=== PATIENT | female | born 1980 | race American Indian/Alaskan Native ===

== ENCOUNTER 2018-09-07 22:13 | Emergency (ER) | payer SELFPAY ==
[2018-09-08] MEDS ORDERED: ULTRAM PO ONE (01:44)
--- NOTE | 2018-09-08 01:45 | Emergency Department Report ---
ED Lower Extremity HPI - General Chief Complaint: Extremity Injury, Lower Stated Complaint: DIZZY/PAIN RT LEG Time Seen by Provider: 09/08/18 01:30 Source: patient Mode of arrival: Ambulatory Limitations: No Limitations - History of Present Illness Initial Comments: pt is a 37 y/o aaf who presented given lower extremity pain past 3 days patient denies falling or trauma pain radiates from low back to the right lower lid is 5 /10 aching and burning and numbness no tingling or paralysis no loss of bowel or bladder function patient remains M to a steady gait per patient patient took Tylenol No. 3 at home with Tylenol No. 3 made her feel dizzy MD Complaint: hip injury Onset/Timin Injury: Knee: Right Type of Injury: blunt, unknown Place: home Severity: moderate Severity scale (0 -10): 5 Worsens With: weight bearing, movement, palpation Associated Symptoms: snap/pop sensation Treatments Prior to Arrival: cold therapy - Related Data Previous Rx's Medication Instructions Recorded Last Taken Type Cyclobenzaprine [Flexeril] 10 mg PO TID PRN #20 tablet 09/08/18 Unknown Rx Menthol/Camphor [[place] 1 applic TP TID #1 tube 09/08/18 Unknown Rx Ointment] Naproxen 500 mg PO BID #30 tablet 09/08/18 Unknown Rx Allergies Allergy/AdvReac Type Severity Reaction Status Date / Time No Known Allergies Allergy Unverified 09/07/18 22:26 ED Review of Systems ROS: Stated complaint: DIZZY/PAIN RT LEG Other details as noted in HPI Constitutional: denies: chills, fever Eyes: denies: eye pain, eye discharge, vision change ENT: denies: ear pain, throat pain Respiratory: denies: cough, shortness of breath, wheezing Cardiovascular: denies: chest pain, palpitations Endocrine: no symptoms reported Gastrointestinal: denies: abdominal pain, nausea, diarrhea Genitourinary: denies: urgency, dysuria, discharge Musculoskeletal: denies: back pain, joint swelling, arthralgia Skin: denies: rash, lesions Neurological: denies: headache, weakness, paresthesias Psychiatric: denies: anxiety, depression Hematological/Lymphatic: denies: easy bleeding, easy bruising, swollen glands ED Past Medical Hx - Past Medical History Previous Medical History?: Yes Hx Asthma: Yes - Surgical History Past Surgical History?: No - Social History Smoking Status: Never Smoker Substance Use Type: Alcohol - Medications Home Medications: Home Medications Medication Instructions Recorded Confirmed Last Taken Type Cyclobenzaprine [Flexeril] 10 mg PO TID PRN #20 tablet 09/08/18 Unknown Rx Menthol/Camphor [[place] 1 applic TP TID #1 tube 09/08/18 Unknown Rx Ointment] Naproxen 500 mg PO BID #30 tablet 09/08/18 Unknown Rx ED Physical Exam - General Limitations: No Limitations ED Course Vital Signs 09/07/18 22:27 Temperature 98.7 F Pulse Rate 102 H Respiratory 20 Rate Blood Pressure 159/95 O2 Sat by Pulse 99 Oximetry Critical care attestation.: If time is entered above; I have spent that time in minutes in the direct care of this critically ill patient, excluding procedure time. ED Disposition Clinical Impression: Strain of right hip Qualifiers: Encounter type: initial encounter Qualified Code(s): S76.011A - Strain of muscle, fascia and tendon of right hip, initial encounter Disposition: - TO HOME OR SELFCARE Is pt being admited?: No Does the pt Need Aspirin: No Condition: Fair Instructions: Muscle Strain (ED) Prescriptions: Cyclobenzaprine [Flexeril] 10 mg PO TID PRN #20 tablet PRN Reason: Muscle Spasm Menthol/Camphor [[place] Ointment] 1 applic TP TID #1 tube Naproxen 500 mg PO BID #30 tablet Referrals: PRIMARY CARE, [Primary Care Provider] - 3-5 Days Forms: Work/School Release Form(ED) Time of Disposition: 02:53
[2018-09-08 03:43] VITALS: BP 146/84
== END 2018-09-08 03:00 | disposition home or self-care (01) ==
LOC: ED 22:13
DX: S76.011A Strain of muscle, fascia and tendon of right hip, initial encounter (principal); J45.909 Unspecified asthma, uncomplicated; X58.XXXA Exposure to other specified factors, initial encounter; Y93.89 Activity, other specified; Y92.009 Unspecified place in unspecified non-institutional (private) residence as the place of occurrence of the external cause; Y99.8 Other external cause status
CPT/HCPCS: 93005; 93010; 99282

== ENCOUNTER 2018-12-20 20:43 | Emergency (ER) | payer SELFPAY ==
[2018-12-20 21:09] VITALS: BP 161/93
--- NOTE | 2018-12-20 23:08 | Emergency Department Report ---
ED Headache HPI - General Chief Complaint: Headache Stated Complaint: HEAD PAIN Time Seen by Provider: 12/20/18 21:54 Source: patient, RN notes reviewed Exam Limitations: no limitations - History of Present Illness Initial Comments: Obese Irish female 38 years old, presents to emergency department complaining of a frontal headache which has been worsening for the last 1 week. Headache actually onset about 2-3 weeks ago dull throbbing fashion, worse with light and certain ranges of motion. There's been no scotomas. No loss of vision. No visual disturbances. Does have sensation of feeling off balance from time to time. Condition [id number] medication primarily. Did not work for this headache. She states this previous time she was having headaches secondary to her eyes. States that that is not the cause for this episode. Portable fever, chills, sweats, chest pain, palpitations, coryza, trauma. No family history of any subarachnoid hemorrhages. Timing/Duration: 1 week Quality: mild Head Injury Location: frontal Recent Head Trauma: occasional headaches Associated Symptoms: denies: fever/chills, flushing, nasal congestion, nasal drainage, numbness in legs/feet Allergies/Adverse Reactions: Allergies No Known Allergies Allergy (Unverified 09/07/18 22:26) Home Medications: Ambulatory Orders Cyclobenzaprine [Flexeril] 10 mg PO TID PRN #20 tablet 09/08/18 Menthol/Camphor [[place] Ointment] 1 applic TP TID #1 tube 09/08/18 Naproxen 500 mg PO BID #30 tablet 09/08/18 Butalb/Acetaminophen/Caffeine [Fioricet 50-300-40 mg CAP] 1 cap PO Q8HR PRN #15 cap 12/20/18 ED Review of Systems ROS: Stated complaint: HEAD PAIN Other details as noted in HPI Constitutional: denies: chills, fever Eyes: denies: eye pain, eye discharge, vision change ENT: denies: ear pain, throat pain Respiratory: denies: cough, shortness of breath, wheezing Cardiovascular: denies: chest pain, palpitations Endocrine: no symptoms reported Gastrointestinal: denies: abdominal pain, nausea, diarrhea Genitourinary: denies: urgency, dysuria, discharge Musculoskeletal: denies: back pain, joint swelling, arthralgia Skin: denies: rash, lesions Neurological: headache. denies: weakness, paresthesias Psychiatric: denies: anxiety, depression Hematological/Lymphatic: denies: easy bleeding, easy bruising ED Past Medical Hx - Past Medical History Hx Asthma: Yes - Surgical History Past Surgical History?: No - Social History Smoking Status: Never Smoker Substance Use Type: Alcohol - Medications Home Medications: Home Medications Medication Instructions Recorded Confirmed Last Taken Type Cyclobenzaprine [Flexeril] 10 mg PO TID PRN #20 tablet 09/08/18 Unknown Rx Menthol/Camphor [[place] 1 applic TP TID #1 tube 09/08/18 Unknown Rx Ointment] Naproxen 500 mg PO BID #30 tablet 09/08/18 Unknown Rx Butalb/Acetaminophen/Caffeine 1 cap PO Q8HR PRN #15 cap 12/20/18 Unknown Rx [Fioricet 50-300-40 mg CAP] ED Physical Exam - General Limitations: No Limitations General appearance: alert, in no apparent distress - Head Head exam: Present: atraumatic, normocephalic - Eye Eye exam: Present: normal appearance, PERRL, EOMI, other (negative funduscopic examination.). Absent: scleral icterus, conjunctival injection, nystagmus, periorbital swelling Pupils: Present: other - ENT ENT exam: Present: normal exam, mucous membranes moist - Neck Neck exam: Present: normal inspection, full ROM. Absent: lymphadenopathy, thyromegaly - Respiratory Respiratory exam: Present: normal lung sounds bilaterally. Absent: respiratory distress, rales, rhonchi, chest wall tenderness, accessory muscle use, decreased breath sounds - Cardiovascular Cardiovascular Exam: Present: regular rate, normal rhythm. Absent: bradycardia, tachycardia, irregular rhythm, systolic murmur, diastolic murmur, rubs, gallop - GI/Abdominal GI/Abdominal exam: Present: soft, normal bowel sounds - Extremities Exam Extremities exam: Present: normal inspection - Back Exam Back exam: Present: normal inspection, full ROM. Absent: CVA tenderness (R), CVA tenderness (L) - Neurological Exam Neurological exam: Present: alert, oriented X3, CN II-XII intact, normal gait - Psychiatric Psychiatric exam: Present: normal affect, normal mood. Absent: anxious, flat affect, manic, suicidal ideation - Skin Skin exam: Present: warm, dry, intact, normal color. Absent: rash, diaphoretic, erythema, urticaria, petechiae, pallor ED Course Vital Signs 12/20/18 20:52 Temperature 99.7 F H Pulse Rate 80 Respiratory 16 Rate Blood Pressure 161/93 [Left] O2 Sat by Pulse 98 Oximetry ED Medical Decision Making - Radiology Data Radiology results: report reviewed [facility] [address] [place] [address] Cat Scan Report Signed Patient: SURENDRA BOSTON MR#: [id number] : 1980 Acct:[id number] Age/Sex: 38 / F ADM Date: 12/20/18 Loc: ED Attending Dr: Ordering Physician: TEA MUELLER Date of Service: 12/20/18 Procedure(s): CT head/brain wo con Accession Number(s): [id number] cc: TEA MUELLER FINAL REPORT PROCEDURE: CT HEAD/BRAIN WO CON TECHNIQUE: Computerized tomography of the head was performed without contrast material. HISTORY: headache COMPARISON: No prior studies are available for comparison. FINDINGS: Skull and scalp: Normal. Paranasal sinuses: Normal. Ventricles and subarachnoid spaces: Normal. Cerebrum: No evidence of hemorrhage, acute infarction or mass . Cerebellum and brainstem: No evidence of hemorrhage, acute infarction or mass. Vasculature: Normal. Comments: None. IMPRESSION: Normal Examination Transcribed By: [facility] Dictated By: NATE ROB Electronically Authenticated By: NATE ROB Signed Date/Time: 12/20/182315 DD/ 18 TD/TT: 12/20/182318 - Medical Decision Making 30-year-old female presents to emergency department with a chronic recurrent headache with normal neurovascular examination. CT scan showed no acute process. Discussed with patient lives with her a tension headache versus hypert ensive headache versus a migraine. She is not currently taking a blood pressure, blood pressure medications and states her blood pressure does fluctuate and I discussed the need for follow-up with a nail machine operator for reevaluation of hypertension and likely to engage in starting treatment. Critical care attestation.: If time is entered above; I have spent that time in minutes in the direct care of this critically ill patient, excluding procedure time. ED Disposition Clinical Impression: Cephalgia Disposition: DC-01 TO HOME OR SELFCARE Is pt being admited?: No Does the pt Need Aspirin: No Condition: Stable Instructions: Migraine Headache (ED), Tension Headache (ED), Acute Headache (ED) Prescriptions: Butalb/Acetaminophen/Caffeine [Fioricet 50-300-40 mg CAP] 1 cap PO Q8HR PRN #15 cap PRN Reason: Headache Referrals: [facility] [Provider Group] - 3-5 Days
--- NOTE | 2018-12-20 23:16 | Cat Scan Report ---
FINAL REPORT PROCEDURE: CT HEAD/BRAIN WO CON TECHNIQUE: Computerized tomography of the head was performed without contrast material. HISTORY: headache COMPARISON: No prior studies are available for comparison. FINDINGS: Skull and scalp: Normal. Paranasal sinuses: Normal. Ventricles and subarachnoid spaces: Normal. Cerebrum: No evidence of hemorrhage, acute infarction or mass . Cerebellum and brainstem: No evidence of hemorrhage, acute infarction or mass. Vasculature: Normal. Comments: None. IMPRESSION: Normal Examination
[2018-12-20] MEDS ORDERED: TORADOL PO ONE (23:59)
== END 2018-12-21 01:10 | disposition home or self-care (01) ==
LOC: ED 20:43
DX: R51 Headache (principal); J45.909 Unspecified asthma, uncomplicated
CPT/HCPCS: 70450; 99283

== ENCOUNTER 2019-04-19 12:35 | Emergency (ER) | payer OTHER ==
--- NOTE | 2019-04-19 12:39 | Emergency Department Report ---
Blank Doc - Documentation Documentation: This is a 38-year-old female that presents with cough and chest congestion. This initial assessment/diagnostic orders/clinical plan/treatment(s) is/are subject to change based on patient's health status, clinical progression and re- assessment by fellow clinical providers in the ED. Further treatment and workup at subsequent clinical providers discretion. Patient/guardians urged not to elope from the ED as their condition may be serious if not clinically assessed and managed. Initial orders include: 1- Patient sent to [facility] for further evaluation and treatment 2- CXR
[2019-04-19] MEDS ORDERED: DUONEB *Not for PRN Use IH ONE (13:39)
[2019-04-19] MEDS ORDERED: DECADRON PO ONE (13:39)
[2019-04-19 13:52] VITALS: BP 150/90
--- NOTE | 2019-04-19 13:57 | XRay Report ---
ROUTINE CHEST, TWO VIEWS: HISTORY: Cough. The trachea, heart, mediastinal contour, lung wagner and bony thorax are unremarkable. IMPRESSION: Unremarkable chest x-ray.
--- NOTE | 2019-04-19 14:53 | Emergency Department Report ---
HPI - General Chief Complaint: Upper Respiratory Infection Time Seen by Provider: 04/19/19 12:39 - HPI HPI: 38-year-old aftermath female presents to the emergency department with a complaint of a few days of cough and chest congestion. She says that the cough has been mostly dry but she does feel like there is some congestion. It is associated with some mild shortness of breath and chest tightness. She denies any fever, back pain, nausea, vomiting or diaphoresis. She has a past medical history of asthma but does not have any inhaler at home. She goes to [facility] for primary care. No recent travel or sick contacts at home. ED Past Medical Hx - Past Medical History Previous Medical History?: Yes Hx Asthma: Yes - Surgical History Past Surgical History?: No - Social History Smoking Status: Never Smoker Substance Use Type: Alcohol - Medications Home Medications: Home Medications Medication Instructions Recorded Confirmed Last Taken Type Cyclobenzaprine [Flexeril] 10 mg PO TID PRN #20 tablet 09/08/18 Unknown Rx Menthol/Camphor [[place] 1 applic TP TID #1 tube 09/08/18 Unknown Rx Ointment] Naproxen 500 mg PO BID #30 tablet 09/08/18 Unknown Rx Butalb/Acetaminophen/Caffeine 1 cap PO Q8HR PRN #15 cap 12/20/18 Unknown Rx [Fioricet 50-300-40 mg CAP] ALBUTEROL Inhaler (OR & NICU) 2 puff IH QID PRN #1 inhalation 04/19/19 Unknown Rx [ProAir HFA Inhaler] Benzonatate [Tessalon Perles] 100 mg PO Q8HR PRN #20 capsule 04/19/19 Unknown Rx ED Review of Systems ROS: Stated complaint: TIGHTNESS IN CHEST/COUGH Other details as noted in HPI Constitutional: denies: chills, fever Eyes: denies: eye pain, vision change ENT: denies: ear pain, throat pain Respiratory: cough, shortness of breath. denies: wheezing Cardiovascular: denies: palpitations, edema Gastrointestinal: denies: abdominal pain, vomiting Genitourinary: denies: dysuria, discharge Musculoskeletal: denies: back pain, arthralgia Skin: denies: rash, lesions Neurological: denies: headache, weakness Physical Exam - Physical Exam Vital Signs: Vital Signs 04/19/19 04/19/19 04/19/19 12:39 13:45 13:48 Temperature 98.6 F 99.5 F Pulse Rate 63 73 73 Respiratory 18 18 Rate Blood Pressure 151/82 150/90 Blood Pressure 150/90 [Right] O2 Sat by Pulse 100 100 100 Oximetry Physical Exam: GENERAL: The patient is well-developed well-nourished. HENT: Normocephalic. Atraumatic. Patient has moist mucous membranes. EYES: Extraocular motions are intact. NECK: Supple. Trachea is midline. CHEST/LUNGS: Mild expiratory wheezing. No tachypnea or accessory muscle use. No cough heard during examination. There is no respiratory distress noted. HEART/CARDIOVASCULAR: Regular. There is no tachycardia. There is no murmur. ABDOMEN: Abdomen is soft, nontender. Patient has normal bowel sounds. SKIN: Skin is warm and dry. NEURO: The patient is awake, alert, and oriented. The patient is cooperative. The patient has no focal neurologic deficits. The patient has normal speech. MUSCULOSKELETAL: There is no tenderness or deformity. There is no limitation range of motion. There is no evidence of acute injury. ED Course Vital Signs 04/19/19 04/19/19 04/19/19 12:39 13:45 13:48 Temperature 98.6 F 99.5 F Pulse Rate 63 73 73 Respiratory 18 18 Rate Blood Pressure 151/82 150/90 Blood Pressure 150/90 [Right] O2 Sat by Pulse 100 100 100 Oximetry ED Medical Decision Making - EKG Data -: EKG Interpreted by [place] EKG shows normal: sinus rhythm, axis, intervals, QRS complexes, ST-T waves (flattening of T waves) - EKG Data When compared to previous EKG there are: previous EKG unavailable Interpretation: other (flattening of t waves. No STEMI) - Radiology Data Radiology results: image reviewed interpreted by me: Chest x-ray does not show any acute process. There are no pleural effusions, obvious pneumonia and there is no pneumothorax. - Medical Decision Making Presents to the emergency department with a few days of some chest congestion and coughing. Chest x-ray did not show any pneumonia, pleural effusions, pneumothorax, focal consolidation, or any other acute process. On examination she has some mild expiratory wheezing but there are no signs of any respiratory distress. She was given a dose of Decadron and a breathing treatment. Upon reevaluation she is feeling improved. Since she did describe some of her symptoms as tightness, EKG was obtained that did not show any signs of any ST elevation MA or dysrhythmia. Her vital signs were stable throughout her ED course. The patient follows up with [facility]. She will be discharged home with an albuterol inhaler and Tessalon Perles for cough. She will return to the ER with any worsening of her symptoms or any acute distress. - Differential Diagnosis asthma, bronchitis, URI, pneumonia Critical Care Time: No Critical care attestation.: If time is entered above; I have spent that time in minutes in the direct care of this critically ill patient, excluding procedure time. ED Disposition Clinical Impression: Upper respiratory infection Qualifiers: URI type: unspecified URI Qualified Code(s): J06.9 - Acute upper respiratory infection, unspecified Disposition: DC- TO HOME OR SELFCARE Is pt being admited?: No Condition: Stable Instructions: Upper Respiratory Infection (ED) Additional Instructions: Please follow up with a primary care physician in the next few days. Return to the emergency Department with any worsening of your symptoms or any acute distress. Prescriptions: ALBUTEROL Inhaler (OR & NICU) [ProAir HFA Inhaler] 2 puff IH QID PRN #1 inhalation PRN Reason: Shortness Of Breath Benzonatate [Tessalon Perles] 100 mg PO Q8HR PRN #20 capsule PRN Reason: Cough Referrals: [facility] [Outside] - 2-3 Days Forms: Work/School Release Form(ED) Time of Disposition: 15:06
== END 2019-04-19 15:20 | disposition home or self-care (01) ==
LOC: ED 12:35
DX: J06.9 Acute upper respiratory infection, unspecified (principal); J45.909 Unspecified asthma, uncomplicated; Z79.899 Other long term (current) drug therapy
CPT/HCPCS: 71046; 93005; 93010; 99283; J8540; 94640

== ENCOUNTER 2019-05-17 06:32 | Emergency (ER) | payer OTHER ==
[2019-05-17 06:39] VITALS: BP 151/95
--- NOTE | 2019-05-17 07:23 | Emergency Department Report ---
ED Lower Extremity HPI - General Chief Complaint: Extremity Injury, Lower Stated Complaint: RT LEG PAIN Time Seen by Provider: 05/17/19 07:08 Source: patient Mode of arrival: Ambulatory Limitations: No Limitations - History of Present Illness Initial Comments: This is a 38-year-old -[place] female presents to the emergency room with right lower extremity pain for 2 months. Patient states she was diagnosed with sciatica and prescribed pain medication and muscle relaxers which helped with pain. Patient states she had tried to see primary care doctor but unable due to no insurance. He reports pain is worse with weightbearing and when she lifts her right leg. She reports pain is a burning sensation that is radiating from right hip to the right knee. She is requesting refills of pain medication for burning sensation to right lower extremity. Patient denies recent injury, swelling, bruising, warmth to the area. MD Complaint: leg injury Onset/Timin -: month(s) Injury: Leg: Right Type of Injury: unknown Place: home Severity: moderate Severity scale (0 -10): 7 Improves With: nothing Worsens With: weight bearing, movement Context: walking Associated Symptoms: ambulatory, other (burning). denies: snap/pop sensation, swelling, tingling, unable to bear weight Treatments Prior to Arrival: NSAIDS, other (muscle relaxers) - Related Data Previous Rx's Medication Instructions Recorded Last Taken Type Cyclobenzaprine [Flexeril] 10 mg PO TID PRN #20 tablet 09/08/18 Unknown Rx Naproxen 500 mg PO BID #30 tablet 09/08/18 Unknown Rx Butalb/Acetaminophen/Caffeine 1 cap PO Q8HR PRN #15 cap 12/20/18 Unknown Rx [Fioricet 50-300-40 mg CAP] ALBUTEROL Inhaler (OR & NICU) 2 puff IH QID PRN #1 inhalation 04/19/19 Unknown Rx [ProAir HFA Inhaler] Benzonatate [Tessalon Perles] 100 mg PO Q8HR PRN #20 capsule 04/19/19 Unknown Rx Menthol/Camphor [[place] 1 applic TP TID #1 tube 05/17/19 Unknown Rx Ointment] Naproxen [Naprosyn] 500 mg PO BID PRN #30 tablet 05/17/19 Unknown Rx methOCARBAMOL [Robaxin TAB] 750 mg PO Q8H PRN #20 tablet 05/17/19 Unknown Rx Allergies Allergy/AdvReac Type Severity Reaction Status Date / Time No Known Allergies Allergy Unverified 09/07/18 22:26 ED Review of Systems ROS: Stated complaint: RT LEG PAIN Other details as noted in HPI Constitutional: denies: chills, fever Respiratory: denies: cough, shortness of breath, wheezing Cardiovascular: denies: chest pain, palpitations Gastrointestinal: denies: abdominal pain, nausea, diarrhea Musculoskeletal: arthralgia (right lower extremity pain). denies: back pain, joint swelling Skin: denies: rash, lesions Neurological: denies: headache, weakness, paresthesias Psychiatric: denies: anxiety, depression ED Past Medical Hx - Past Medical History Previous Medical History?: Yes Hx Asthma: Yes - Surgical History Past Surgical History?: No - Social History Smoking Status: Never Smoker Substance Use Type: None - Medications Home Medications: Home Medications Medication Instructions Recorded Confirmed Last Taken Type Cyclobenzaprine [Flexeril] 10 mg PO TID PRN #20 tablet 09/08/18 Unknown Rx Naproxen 500 mg PO BID #30 tablet 09/08/18 Unknown Rx Butalb/Acetaminophen/Caffeine 1 cap PO Q8HR PRN #15 cap 12/20/18 Unknown Rx [Fioricet 50-300-40 mg CAP] ALBUTEROL Inhaler (OR & NICU) 2 puff IH QID PRN #1 inhalation 04/19/19 Unknown Rx [ProAir HFA Inhaler] Benzonatate [Tessalon Perles] 100 mg PO Q8HR PRN #20 capsule 04/19/19 Unknown Rx Menthol/Camphor [[place] 1 applic TP TID #1 tube 05/17/19 Unknown Rx Ointment] Naproxen [Naprosyn] 500 mg PO BID PRN #30 tablet 05/17/19 Unknown Rx methOCARBAMOL [Robaxin TAB] 750 mg PO Q8H PRN #20 tablet 05/17/19 Unknown Rx ED Physical Exam - General Limitations: No Limitations General appearance: alert, in no apparent distress, obese (morbidly) - Respiratory Respiratory exam: Present: normal lung sounds bilaterally. Absent: respiratory distress - Cardiovascular Cardiovascular Exam: Present: regular rate, normal rhythm. Absent: systolic murmur, diastolic murmur, rubs, gallop - GI/Abdominal GI/Abdominal exam: Present: soft, normal bowel sounds - Expanded Lower Extremity Exam Right Hip exam: Present: normal inspection, full ROM Upper Leg exam: Present: normal inspection, full ROM Knee exam: Present: normal inspection, full ROM, full knee extension. Absent: tenderness, swelling, abrasion, laceration, ecchymosis, deformity, erythema Lower Leg exam: Present: full ROM (painful range of motion). Absent: tenderness, swelling, abrasion, laceration, ecchymosis, deformity, crepidus, dislocation, erythema, palpable cord, Eveline's sign Ankle exam: Present: normal inspection, full ROM Foot/Toe exam: Present: normal inspection, full ROM Neuro vascular tendon exam: Present: no vascular compromise Gait: Positive: observed and limited by pain - Back Exam Back exam: Present: full ROM, other (positive straight leg test on the right). Absent: paraspinal tenderness - Neurological Exam Neurological exam: Present: alert, oriented X3, normal gait - Psychiatric Psychiatric exam: Present: normal affect, normal mood - Skin Skin exam: Present: warm, dry, intact, normal color. Absent: rash ED Course Vital Signs 05/17/19 06:36 Temperature 98.1 F Pulse Rate 105 H Respiratory 18 Rate Blood Pressure 151/95 O2 Sat by Pulse 100 Oximetry ED Lower Extremity MDM - Medical Decision Making Patient was examined by me. Vitals are normal and patient is in no acute distress. Past medical history of asthma. This is acute on chronic sciatica right lower extremity. Patient requested refills of medication. Start naproxen and Robaxin for pain. Plan discussed with patient to discharge home and treat outpatient. Referral to the [facility] or [facility] for follow-up. She agrees with ER plan. Patient discharged home in stable condition. Follow up with PCP in 2-3 days. Critical care attestation.: If time is entered above; I have spent that time in minutes in the direct care of this critically ill patient, excluding procedure time. ED Disposition Clinical Impression: Sciatica of right side, Acute pain of right lower extremity Disposition: TO HOME OR SELFCARE Is pt being admited?: No Does the pt Need Aspirin: No Condition: Stable Instructions: Sciatica (ED), Arthralgia (ED) Additional Instructions: Follow-up with the primary care doctor from referral list below. Return to the emergency room if worsening symptoms. Prescriptions: Naproxen [Naprosyn] 500 mg PO BID PRN #30 tablet PRN Reason: Pain , Severe (7-10) methOCARBAMOL [Robaxin TAB] 750 mg PO Q8H PRN #20 tablet PRN Reason: Muscle Spasm Menthol/Camphor [[place] Ointment] 1 applic TP TID #1 tube Referrals: [facility] [Outside] - 3-5 Days [facility] [Outside] - 3-5 Days [facility] [Outside] - 3-5 Days Forms: Work/School Release Form(ED) Time of Disposition: 07:30
== END 2019-05-17 07:36 | disposition home or self-care (01) ==
LOC: ED 06:32
DX: M54.31 Sciatica, right side (principal); J45.909 Unspecified asthma, uncomplicated

== ENCOUNTER 2019-07-15 06:47 | Emergency (ER) | payer SELFPAY ==
--- NOTE | 2019-07-15 08:01 | XRay Report ---
CHEST 2 VIEWS INDICATION / CLINICAL INFORMATION: cough, chest pain. COMPARISON: 2 views of the chest from 04/19/2019. FINDINGS: SUPPORT DEVICES: None. HEART / MEDIASTINUM: No significant abnormality. LUNGS / PLEURA: No significant pulmonary or pleural abnormality. No pneumothorax. ADDITIONAL FINDINGS: No significant additional findings. IMPRESSION: No acute abnormality of the chest. Signer Name: Malachi Mckeon MD Signed: 07/15/2019 7:57 AM Workstation Name: [id number]
[2019-07-15 08:12] LABS: Basophils % (Auto) 0.8 % (0.0-1.8); Eosinophils # (Auto) 0.1 K/mm3 (0.0-0.4); Eosinophils % (Auto) 1.3 % (0.0-4.3); Hemoglobin 11.9 gm/dl (10.1-14.3); Lymphocytes % (Auto) 20.5 % (13.4-35.0); Mean Corpuscular HGB Conc 33 % (30-34); Mean Corpuscular Volume 83 fl (79-97); Monocytes # (Auto) 0.4 K/mm3 (0.0-0.8); Monocytes % (Auto) 8.4 % (0.0-7.3); Platelet Count 260 K/mm3 (140-440); Red Blood Count 4.34 M/mm3 (3.65-5.03); Red Cell Distribution Width 16.1 % (13.2-15.2)
[2019-07-15 08:38] LABS: Alanine Aminotransferase 12 units/L (7-56); Albumin 4.1 g/dL (3.9-5); BUN/Creatinine Ratio 16; Blood Urea Nitrogen 11 mg/dL (7-17); Calcium 9.5 mg/dL (8.4-10.2)
[2019-07-15 08:39] LABS: Hemolysis Index 35
--- NOTE | 2019-07-15 08:41 | Emergency Department Report ---
ED Chest Pain HPI - General Chief Complaint: Chest Pain Stated Complaint: CHEST TIGHTNESS Time Seen by Provider: 07/15/19 08:27 Source: patient Mode of arrival: Ambulatory Limitations: No Limitations - History of Present Illness MD Complaint: chest pain -: Gradual, days(s) (1) Onset: during rest Pain Location: substernal Pain Radiation: none Severity: mild Severity scale (0 -10): 1 Quality: tightness Consistency: intermittent Improves With: other (albuterol inhaler) Worsens With: nothing re: denies: nausea, vomting, diaphoresis, dyspnea, sense of impending doom Other Symptoms: denies: cough, fever, syncope, rash, acid taste in mouth, leg swelling, palpitations, burping - Related Data Previous Rx's Medication Instructions Recorded Last Taken Type Cyclobenzaprine [Flexeril] 10 mg PO TID PRN #20 tablet 09/08/18 Unknown Rx Naproxen 500 mg PO BID #30 tablet 09/08/18 Unknown Rx Butalb/Acetaminophen/Caffeine 1 cap PO Q8HR PRN #15 cap 12/20/18 Unknown Rx [Fioricet 50-300-40 mg CAP] ALBUTEROL Inhaler (OR & NICU) 2 puff IH QID PRN #1 inhalation 04/19/19 Unknown Rx [ProAir HFA Inhaler] Benzonatate [Tessalon Perles] 100 mg PO Q8HR PRN #20 capsule 04/19/19 Unknown Rx Menthol/Camphor [[place] 1 applic TP TID #1 tube 05/17/19 Unknown Rx Ointment] Naproxen [Naprosyn] 500 mg PO BID PRN #30 tablet 05/17/19 Unknown Rx methOCARBAMOL [Robaxin TAB] 750 mg PO Q8H PRN #20 tablet 05/17/19 Unknown Rx Allergies Allergy/AdvReac Type Severity Reaction Status Date / Time No Known Allergies Allergy Unverified 09/07/18 22:26 Heart Score - HEART Score History: Slightly suspicious EKG: Normal Age: < 45 Risk factors: 1-2 risk factors Troponin: < normal limit HEART Score: 1 ED Review of Systems ROS: Stated complaint: CHEST TIGHTNESS Other details as noted in HPI Other: GENERAL: No weight change, fatigue, fever, chills, or night sweats SKIN: No changes in skin or hair, no itching, no rashes, no jaundice HEAD: No trauma, headache, or visual changes EYES: No blurriness, tearing, itching, acute visual loss, conjunctival discoloration, or scleral icterus EARS: No hearing loss, tinnitus, vertigo, or earache NOSE: No rhinorrhea, stuffiness, sneezing, itching, or epistaxis MOUTH: No bleeding gums, hoarseness, sore throat, or swelling CARDIAC: Chest pain. No new murmur, palpitations, dyspnea on exertion, orthopnea, PND, or edema RESPIRATORY: No shortness of breath, wheeze, cough, sputum production, hemoptysis, pneumonia, asthma, bronchitis, or emphysema GI: No change in appetite, nausea, vomiting, dysphagia, diarrhea, constipation, hematemesis, melena, hematochezia, or abdominal pain URINARY: No frequency, urgency, polyuria, dysuria, hematuria, or incontinence MUSCULOSKELETAL: No muscle weakness, joint stiffness, decrease in range of motion, redness, swelling NEUROLOGIC: No headache, loss of sensation, numbness, tingling, tremors, weakness, paralysis, seizures HEMATOLOGIC: No anemia, easy bruising, bleeding, petechiae, or purpura ENDOCRINE: No hot or cold intolerance, sweating, polyuria, polydipsia or, polyphagia no thyroid problems PSYCHIATRIC: No change in mood, no anxiety, no depression ED Past Medical Hx - Past Medical History Previous Medical History?: Yes Hx Hypertension: Yes Hx Asthma: Yes - Surgical History Past Surgical History?: No - Social History Smoking Status: Never Smoker Substance Use Type: Alcohol - Medications Home Medications: Home Medications Medication Instructions Recorded Confirmed Last Taken Type Cyclobenzaprine [Flexeril] 10 mg PO TID PRN #20 tablet 09/08/18 Unknown Rx Naproxen 500 mg PO BID #30 tablet 09/08/18 Unknown Rx Butalb/Acetaminophen/Caffeine 1 cap PO Q8HR PRN #15 cap 12/20/18 Unknown Rx [Fioricet 50-300-40 mg CAP] ALBUTEROL Inhaler (OR & NICU) 2 puff IH QID PRN #1 inhalation 04/19/19 Unknown Rx [ProAir HFA Inhaler] Benzonatate [Tessalon Perles] 100 mg PO Q8HR PRN #20 capsule 04/19/19 Unknown Rx Menthol/Camphor [[place] 1 applic TP TID #1 tube 05/17/19 Unknown Rx Ointment] Naproxen [Naprosyn] 500 mg PO BID PRN #30 tablet 05/17/19 Unknown Rx methOCARBAMOL [Robaxin TAB] 750 mg PO Q8H PRN #20 tablet 05/17/19 Unknown Rx ED Physical Exam - General Limitations: No Limitations - Other Other exam information: GENERAL: Patient in no acute distress HEAD: Normocephalic, atraumatic EYES: PERRLA, EOM intact, no scleral icterus, no conjunctival hemorrhage, visual wagner and acuity wnl NOSE: No tenderness, discharge, sinus tenderness MOUTH: No erythema, bleeding, exudate HEART: Regular rate and rhythm, no murmur, S1-S2 are auscultated, pulses are symmetric LUNGS: Bilateral breath sounds, No tachypnea, No retractions, No wheezing, rales, rhonchi ABDOMEN: Normal bowel sounds, abdomen soft, no tenderness, no rebound, no guarding, no distention, no masses, no CVA tenderness MUSCULOSKELETAL: Normal joint range of motion, no redness, no swelling, no tenderness NEUROLOGIC: GCS 15, Alert and Oriented x3, Cranial nerves intact, normal sensation, normal strength, no cerebellar deficit, NIHSS 0 PSYCHIATRIC: Anxious. No homicidal or suicidal ideation, no depression, no hallucinations SKIN: Skin is warm and dry, no wounds, no rashes ED Course Vital Signs 07/15/19 07:20 Temperature 99.3 F Pulse Rate 89 Respiratory 18 Rate Blood Pressure 169/96 O2 Sat by Pulse 100 Oximetry ED Medical Decision Making - Lab Data Result diagrams: 07/15/19 07:58 07/15/19 07:58 - EKG Data When compared to previous EKG there are: no significant change - Radiology Data Radiology results: report reviewed - Medical Decision Making Patient comfortable. Updated with results. Discussed concerns for anxiety. Plan discharge with outpatient follow up. Return if any worsening. Critical care attestation.: If time is entered above; I have spent that time in minutes in the direct care of this critically ill patient, excluding procedure time. ED Disposition Clinical Impression: Chest pain Qualifiers: Chest pain type: unspecified Qualified Code(s): R07.9 - Chest pain, unspecified Disposition: TO HOME OR SELFCARE Is pt being admited?: No Condition: Stable Instructions: Chest Pain (ED) Referrals: [facility] [Outside] - 2-3 Days [facility] [Outside] - 2-3 Days MEGAN PARMAR MD [Staff Physician] - 2-3 Days UYEN QUIROGA MD [Staff Physician] - 2-3 Days Time of Disposition: 11:52
[2019-07-15] MEDS ORDERED: NACL 0.9% 1000 ML 1,000 ML IV ONE (10:06)
[2019-07-15] MEDS ORDERED: BABY ASPIRIN PO ONE (10:06)
--- NOTE | 2019-07-15 11:39 | Cat Scan Report ---
CTA CHEST WITH IV CONTRAST INDICATION: Chest pain and tightness since last night. TECHNIQUE: Axial CT images were obtained through the chest after injection of 100 mL Omnipaque 350 IV contrast. 3 plane MIP reconstructions were produced. All CT scans at this location are performed using CT dose reduction for ALARA by means of automated exposure control. COMPARISON: 2 views of the chest from earlier today. FINDINGS: PULMONARY ARTERIES: There is suboptimal opacification of the pulmonary arteries. No distinct central thromboembolism is seen. AORTA AND ARTERIES: No acute abnormality. MEDIASTINUM: No mass, lymphadenopathy or other significant abnormality. The heart is normal in size w ithout a pericardial effusion. The trachea and main bronchi are patent and normal in caliber. LUNGS: No suspicious consolidation, nodule or mass. No pneumothorax or pleural effusion. ADDITIONAL FINDINGS: None. UPPER ABDOMEN: There is a small hiatal hernia without associated inflammation. No additional signific ant abnormality. BONES: No acute abnormality. Mild degenerative changes are noted along the spine. IMPRESSION: 1. Limited exam without a distinct central pulmonary artery thromboembolism. 2. No additional acute abnormality of the chest. Signer Name: Malachi Mckeon MD Signed: 07/15/2019 11:34 AM Workstation Name: [id number]
[2019-07-15 12:12] VITALS: BP 135/93
== END 2019-07-15 12:44 | disposition home or self-care (01) ==
LOC: ED 06:47
DX: R07.2 Precordial pain (principal); I10 Essential (primary) hypertension; J45.909 Unspecified asthma, uncomplicated; Z79.899 Other long term (current) drug therapy
CPT/HCPCS: 36415; 71046; 71275; 80053; 84484; 85025; 85379; 93005; 93010; 99285; J7030; Q9967

== ENCOUNTER 2022-07-28 11:17 | Emergency (ER) | payer MEDICAID ==
--- NOTE | 2022-07-28 20:09 | Emergency Department Report ---
ED General Adult HPI - General Chief complaint: Earache Stated complaint: EAR RING STUCK IN EAR Time Seen by Provider: 07/28/22 19:56 Source: patient, family Mode of arrival: Ambulatory Limitations: No Limitations - History of Present Illness Initial comments: 10 y reports to the ER with her mother after having an earring backing getting stuck in her left ear. Happened last night. Patient reports mild pain. No fever. No ear discharge. Severity scale (0 -10): 0 - Related Data Previous Rx's Medication Instructions Recorded Last Taken Type Cyclobenzaprine [Flexeril] 10 mg PO TID PRN #20 tablet 09/08/18 Unknown Rx Naproxen 500 mg PO BID #30 tablet 09/08/18 Unknown Rx Butalb/Acetaminophen/Caffeine 1 cap PO Q8HR PRN #15 cap 12/20/18 Unknown Rx [Fioricet 50-300-40 mg CAP] Albuterol Mdi (or & Nicu Only) 2 puff IH QID PRN #1 inhalation 04/19/19 Unknown Rx [ProAir HFA Inhaler] Benzonatate [Tessalon Perles] 100 mg PO Q8HR PRN #20 capsule 04/19/19 Unknown Rx Menthol/Camphor [[place] 1 applic TP TID #1 tube 05/17/19 Unknown Rx Ointment] Naproxen [Naprosyn] 500 mg PO BID PRN #30 tablet 05/17/19 Unknown Rx methOCARBAMOL [Robaxin TAB] 750 mg PO Q8H PRN #20 tablet 05/17/19 Unknown Rx Allergies Allergy/AdvReac Type Severity Reaction Status Date / Time No Known Allergies Allergy Unverified 09/07/18 22:26 ED Review of Systems ROS: Stated complaint: EAR RING STUCK IN EAR Other details as noted in HPI ENT: ear pain (Foreign body left ear) ED Past Medical Hx - Past Medical History Previous Medical History?: Yes Hx Hypertension: No Hx Asthma: Yes - Surgical History Past Surgical History?: No - Social History Smoking Status: Never Smoker Substance Use Type: Alcohol - Medications Home Medications: Home Medications Medication Instructions Recorded Confirmed Last Taken Type Cyclobenzaprine [Flexeril] 10 mg PO TID PRN #20 tablet 09/08/18 Unknown Rx Naproxen 500 mg PO BID #30 tablet 09/08/18 Unknown Rx Butalb/Acetaminophen/Caffeine 1 cap PO Q8HR PRN #15 cap 12/20/18 Unknown Rx [Fioricet 50-300-40 mg CAP] Albuterol Mdi (or & [place] Only) 2 puff IH QID PRN #1 inhalation 04/19/19 Unknown Rx [ProAir HFA Inhaler] Benzonatate [Tessalon Perles] 100 mg PO Q8HR PRN #20 capsule 04/19/19 Unknown Rx Menthol/Camphor [[place] 1 applic TP TID #1 tube 05/17/19 Unknown Rx Ointment] Naproxen [Naprosyn] 500 mg PO BID PRN #30 tablet 05/17/19 Unknown Rx methOCARBAMOL [Robaxin TAB] 750 mg PO Q8H PRN #20 tablet 05/17/19 Unknown Rx ED Physical Exam - General Limitations: No Limitations General appearance: alert, in no apparent distress - Head Head exam: Present: atraumatic, normocephalic - Eye Eye exam: Present: normal appearance - ENT ENT exam: Present: mucous membranes moist - Expanded ENT Exam Expanded TM/Canal exam: Foreign Body: Left TM (backing of earring) - Neck Neck exam: Present: normal inspection - Respiratory Respiratory exam: Present: normal lung sounds bilaterally. Absent: respiratory distress - Cardiovascular Cardiovascular Exam: Present: regular rate, normal rhythm. Absent: systolic murmur, diastolic murmur, rubs, gallop - GI/Abdominal GI/Abdominal exam: Present: soft, normal bowel sounds - Extremities Exam Extremities exam: Present: normal inspection - Back Exam Back exam: Present: normal inspection - Neurological Exam Neurological exam: Present: alert, oriented X3 - Psychiatric Psychiatric exam: Present: normal affect, normal mood - Skin Skin exam: Present: warm, dry, intact, normal color. Absent: rash ED Course Vital Signs 07/28/22 07/28/22 12:03 20:43 Temperature 98.5 F Pulse Rate 78 74 Respiratory 22 16 Rate Blood Pressure 109/66 106/67 [Right] O2 Sat by Pulse 98 100 Oximetry - Foreign Body Removal Ear Foreign Body Suspected: other (Earring backing) Foreign Body Removed: yes Foreign Body Removal Technique: curette Tympanic Membrane Intact: Yes Patient Tolerated Procedure: well Complications: none Critical care attestation.: If time is entered above; I have spent that time in minutes in the direct care of this critically ill patient, excluding procedure time. ED Disposition Clinical Impression: Foreign body in left ear Qualifiers: Encounter type: initial encounter Qualified Code(s): T16.2XXA - Foreign body in left ear, initial encounter Disposition: 01 HOME / SELF CARE / HOMELESS Is pt being admited?: No Condition: Stable Instructions: Ear Foreign Body
[2022-07-28 20:43] VITALS: BP 106/67
== END 2022-07-28 20:43 | disposition home or self-care (01) ==
LOC: EDBD → ED 11:17
DX: T16.2XXA Foreign body in left ear, initial encounter (principal); I10 Essential (primary) hypertension; J45.909 Unspecified asthma, uncomplicated; Z72.89 Other problems related to lifestyle; Z79.899 Other long term (current) drug therapy; X58.XXXA Exposure to other specified factors, initial encounter; Y93.89 Activity, other specified; Y92.89 Other specified places as the place of occurrence of the external cause; Y99.8 Other external cause status
CPT/HCPCS: 99282; 99283